=== PATIENT | male | born 1955 | race Caucasian/White ===

== ENCOUNTER 2016-12-26 05:25 | Observation (INO) | payer OTHER ==
[~2016-12-26] VITALS: Ht 167.6 cm; Wt 95.5 kg
[2016-12-26] VITALS (7 sets, daily range): BP systolic 109–181; BP diastolic 69–93; PULSE 66–91; RESP 16–20; TEMP 96–97.9; O2SAT 94–98
[~2016-12-26 05:25] MED LIST: GLIM4TAB PO; RANITAB PO; SAXA1TBM PO; TAMS0.4C4 PO; VASE1025 PO; ZOFR4TAB3 PO
[2016-12-26] MEDS ORDERED: METF1000 PO (05:43)
[2016-12-26] MEDS ORDERED: TAMS5CAP PO (05:43)
[2016-12-26] MEDS ORDERED: ENAL10TA PO (05:43)
[2016-12-26] MEDS ORDERED: GLIM4TAB PO (05:43)
[2016-12-26] MEDS ORDERED: ASPI325T33 PO (05:43)
[2016-12-26] MEDS ORDERED: ZANT150T2 PO (05:43)
--- NOTE | 2016-12-26 05:43 | PD ---
HPI Chief Complaint: Chest Pain Time Seen by Provider: 05:35 Travel History International Travel<30 days: No Contact w/Intl Traveler<30days: No Traveled to known affect area: No History of Present Illness HPI 61-year-old male presents to the emergency department by private transportation for complaint of retrosternal left-sided chest pain since last evening. Patient states that pain was 8/10 in intensity and presently is 5/10 in intensity. Patient is nonradiating. Patient does not report any associated shortness of breath sweats nausea vomiting or referred neck jaw back shoulder arm pain. Also no report of abdominal pain. Patient has history of hypertension dyslipidemia and diabetes. Patient also has family history of CAD with father dying however patient does not note that his father's age that time of . Patient denies tobacco use. Patient did take a 81 mg aspirin prior to arrival to the emergency department. PFSH Past Medical History Narrative Medical Hypertension dyslipidemia diabetes colitis psoriasis; occasional alcohol use; no tobacco use; family history CAD; nursing notes reviewed Autoimmune Disease: No Cancer: No Diabetes: Yes Diminished Hearing: No Genitourinary: No Hypertension: Yes Immune Disorder: No Musculoskeletal: No Neurologic: No Psychiatric: No Reproductive: No Respiratory: No (bronchitis 3 weeks ago) Integumentary: Yes (PSORIASIS) Pneumonia: Yes Past Surgical History Other Surgery: No Social History Alcohol Use: Yes (8 BEERS/WEEK) Tobacco Use: No Substance Use: No Allergies-Medications (Allergen,Severity, Reaction): Coded Allergies: No Known Allergies (Verified , 12/26/16) Reported Meds & Prescriptions Reported Meds & Active Scripts Active Reported Hydrochlorothiazide 25 Mg Tab 25 Mg PO DAILY Aspirin EC (Aspirin) 325 Mg Tabdr 325 Mg PO DAILY Flomax (Tamsulosin HCl) 0.4 Mg Cap 0.4 Mg PO HS Glimepiride 4 Mg Tab 4 Mg PO BIDAC Zantac (Ranitidine HCl) 150 Mg Tab 150 Mg PO BID Enalapril (Enalapril Maleate) 10 Mg Tab 10 Mg PO DAILY Metformin (Metformin HCl) 1,000 Mg Tab 1,000 Mg PO BIDPC With meals Review of Systems Except as stated in HPI: all other systems reviewed are Neg General / Constitutional: No: Fever, Chills HENT: No: Congestion Cardiovascular: Positive: Chest Pain or Discomfort, No: Palpitations, Diaphoresis Respiratory: No: Shortness of Breath Gastrointestinal: No: Nausea, Vomiting Genitourinary: No: Flank Pain Musculoskeletal: No: Myalgias, Arthralgias Skin: No Rash Neurologic: No: Weakness Psychiatric: No: Anxiety Hematologic/Lymphatic: No: Easy Bruising Physical Exam Narrative GENERAL: Well-developed well-nourished male in no acute distress no respiratory distress SKIN: Warm and dry. HEAD: Normocephalic. EYES: No scleral icterus. No injection or drainage. NECK: Supple, trachea midline. No JVD or lymphadenopathy. CARDIOVASCULAR: Regular rate and rhythm without murmurs, gallops, or rubs. Chest wall: Nontender RESPIRATORY: Breath sounds equal bilaterally. No accessory muscle use. GASTROINTESTINAL: Abdomen soft, non-tender, nondistended. MUSCULOSKELETAL: No cyanosis, or edema. Radial and dorsalis pedis pulses 2+ to palpation BACK: Nontender without obvious deformity. No CVA tenderness. Data Data Last Documented VS Vital Signs Date Time Temp Pulse Resp B/P Pulse Ox O2 Delivery O2 Flow Rate FiO2 12/26/16 06:07 91 Nasal Cannula 2 12/26/16 05:38 149/85 151/85 12/26/16 05:31 97.9 91 18 Orders Electrocardiogram (12/26/16 05:35) Basic Metabolic Panel (Bmp) (12/26/16 05:35) Ckmb (Isoenzyme) Profile (12/26/16 05:35) Complete Blood Count With Diff (12/26/16 05:35) Magnesium (Mg) (12/26/16 05:35) Prothrombin Time / Inr (Pt) (12/26/16 05:35) Act Partial Throm Time (Ptt) (12/26/16 05:35) Troponin I (12/26/16 05:35) Chest, Single Ap (12/26/16 05:35) Ecg Monitoring (12/26/16 05:35) Bilateral Bp Monitoring (12/26/16 05:35) Iv Access Insert/Monitor (12/26/16 05:35) Oximetry (12/26/16 05:35) Oxygen Administration (12/26/16 05:35) Aspirin Chew (Aspirin Chew) (12/26/16 05:45) Sodium Chloride 0.9% Flush (Ns Flush) (12/26/16 05:45) Nitroglycerin Sl (Nitrostat Sl) (12/26/16 05:45) Sodium Chlor 0.9% 1000 Ml Inj (Ns 1000 M (12/26/16 05:45) CKMB (12/26/16 05:35) CKMB% (12/26/16 05:35) Sodium Chlorid 0.9% 500 Ml Inj (Ns 500 M (12/26/16 06:30) Labs Laboratory Tests Test 12/26/16 05:35 White Blood Count 8.1 TH/MM3 Red Blood Count 5.43 MIL/MM3 Hemoglobin 14.9 GM/DL Hematocrit 44.9 % Mean Corpuscular Volume 82.8 FL Mean Corpuscular Hemoglobin 27.4 PG Mean Corpuscular Hemoglobin 33.1 % Concent Red Cell Distribution Width 13.6 % Platelet Count 174 TH/MM3 Mean Platelet Volume 10.5 FL Neutrophils (%) (Auto) 60.5 % Lymphocytes (%) (Auto) 22.1 % Monocytes (%) (Auto) 9.2 % Eosinophils (%) (Auto) 3.7 % Basophils (%) (Auto) 4.5 % Neutrophils # (Auto) 4.9 TH/MM3 Lymphocytes # (Auto) 1.8 TH/MM3 Monocytes # (Auto) 0.7 TH/MM3 Eosinophils # (Auto) 0.3 TH/MM3 Basophils # (Auto) 0.4 TH/MM3 CBC Comment DIFF FINAL Differential Comment Prothrombin Time 9.8 SEC Prothromb Time International 0.9 RATIO Ratio Activated Partial 29.9 SEC Thromboplast Time Sodium Level 137 MEQ/L Potassium Level 3.7 MEQ/L Chloride Level 102 MEQ/L Carbon Dioxide Level 28.1 MEQ/L Anion Gap 7 MEQ/L Blood Urea Nitrogen 21 MG/DL Creatinine 0.96 MG/DL Estimat Glomerular Filtration 79 ML/MIN Rate Random Glucose 196 MG/DL Calcium Level 9.5 MG/DL Magnesium Level 1.8 MG/DL Total Creatine Kinase 130 U/L Creatine Kinase MB 1.7 NG/ML Troponin I LESS THAN 0.02 NG/ML MDM Medical Decision Making Medical Screen Exam Complete: Yes Emergency Medical Condition: Yes Medical Record Reviewed: Yes Interpretation(s) EKG normal sinus rhythm rate [address] elevation or injury pattern change or ectopy Differential Diagnosis Chest pain, ACS, myocardial infarction, esophageal spasm, biliary colic, pancreatitis, gastritis, aortic aneurysm, aortic dissection Narrative Course Patient placed on teletypesetter monitor IV access obtained EKG performed which reveals no acute ST elevation or injury pattern; patient administered sublingual nitroglycerin 3 to be taken as needed for pain greater and to be held for pain-free or systolic pressure less than or equal to 100 mmHg Edna De Oliveira MD Dec 26, 2016 05:43
[2016-12-26 05:44] LABS: AUTOMATED NEUTROPHIL # 4.9 TH/MM3 (1.8-7.7); BASOPHIL # 0.4 TH/MM3 (0-0.2); BASOPHIL % 4.5 % (0.0-2.0); EOSINOPHIL # 0.3 TH/MM3 (0-0.4); EOSINOPHIL % 3.7 % (0.0-4.0); HEMATOCRIT 44.9 % (39.0-51.0); HEMO FLAGS DIFF FINAL; LYMPH % 22.1 % (9.0-44.0); LYMPHOCYTE # 1.8 TH/MM3 (1.0-4.8); MEAN CELL VOLUME 82.8 FL (80.0-100.0); MEAN CORPUSCULAR HEMOGLOBIN 27.4 PG (27.0-34.0); MEAN CORPUSCULAR HGB CONC 33.1 % (32.0-36.0); MONO % 9.2 % (0.0-8.0); NEUT % 60.5 % (16.0-70.0); PLATELET COUNT 174 TH/MM3 (150-450); RED BLOOD COUNT 5.43 MIL/MM3 (4.50-5.90); RED CELL DISTRIBUTION WIDTH 13.6 % (11.6-17.2); WHITE BLOOD COUNT 8.1 TH/MM3 (4.0-11.0)
[2016-12-26] MEDS ORDERED: SODIUM CHLOR 0.9% 1000 ML INJ 1,000 ML IV SCH (05:45)
[2016-12-26] MEDS ORDERED: SODIUM CHLORIDE 0.9% FLUSH 10 ML FLUSH IVF PRN ×2 (05:45→06:30)
[2016-12-26] MEDS ORDERED: ASPIRIN 81 MG CHEW TAB PO ONE (05:45)
[2016-12-26] MEDS ORDERED: HYDR25TA5 PO (05:48)
[2016-12-26] MEDS: NITROGLYCERIN 0.4 MG SL 25 TABS/BTL SL SCH ×3 (05:52→06:18)
[2016-12-26 05:53] LABS: CHLORIDE 102 MEQ/L (98-107); POTASSIUM 3.7 MEQ/L (3.5-5.1); SODIUM (NA) 137 MEQ/L (136-145)
[2016-12-26 05:56] LABS: ANION GAP 7 MEQ/L (5-15); BICARBONATE 28.1 MEQ/L (21.0-32.0); BLOOD UREA NITROGEN 21 MG/DL (7-18); MAGNESIUM 1.8 MG/DL (1.5-2.5)
[2016-12-26 05:57] LABS: APTT (PATIENT) 29.9 SEC (24.3-30.1); INTERNATIONAL NORMALIZED RATIO 0.9 RATIO; PROTHROMBIN TIME - PATIENT 9.8 SEC (9.8-11.6)
[2016-12-26 05:59] LABS: GLOMERULAR FILTRATION RATE 79 ML/MIN (>89)
[2016-12-26 06:02] LABS: CREATINE KINASE 130 U/L (39-308)
--- NOTE | 2016-12-26 06:11 | RADRPT ---
EXAM DATE/TIME: 12/26/2016 05:43 [facility] COMPARISON: No previous studies available for comparison. INDICATIONS : Chest pain for 10 hours MEDICAL HISTORY : None. SURGICAL HISTORY : None. ENCOUNTER: Initial ACUITY: 1 day PAIN SCORE: 7/10 LOCATION: Left chest FINDINGS: A single view of the chest demonstrates the lungs to be symmetrically aerated without evidence of mas s, infiltrate or effusion. The cardiomediastinal contours are unremarkable. Osseous structures are intact. CONCLUSION: No acute disease. Boom Gunn MD on December 26, 2016 at 6:09 Board Certified Radiologist. This report was verified electronically.
[2016-12-26 06:14] LABS: CKMB 1.7 NG/ML (0.5-3.6)
[2016-12-26] MEDS ORDERED: SODIUM CHLORIDE 0.9% FLUSH 10 ML FLUSH IV FLUSH PRN (06:30)
[2016-12-26] MEDS ORDERED: SODIUM CHLORID 0.9% 500 ML INJ 500 ML IV ONE (06:30)
--- NOTE | 2016-12-26 08:39 | HHI.HP ---
[facility] Franchesca Glynn MD Admission Diagnosis chest pain Diagnoses: (1) Chest pain Diagnosis: Principal (2) Hypertension Diagnosis: Secondary (3) Diabetes Diagnosis: Secondary (4) Family history of heart disease Diagnosis: Secondary (5) History of tobacco use Diagnosis: Secondary Chief Complaint: Chest pain Travel History International Travel<30 Days: No Contact w/Intl Traveler <30 Da: No Traveled to Known Affected Are: No History of Present Illness Written by Poncho Edge, acting as scribe for Dr. Acuña on 12/26/16 at 08: 32. This note was transcribed by scribe Poncho RESENDEZ. I, Dr. Sandar Acuña personally performed the history, physical exam, and medical decision making; and confirmed the accuracy of the information in the transcribed note. Authenticated by Dr. Sandra Acuña on 12/26/16 at 08:32. 61-year-old male with known history of hypertension, diabetes, history tobacco use, gastroesophageal reflux who presented to hospital because of chest pain. Patient states that the pain started yesterday while he was mowing the grass where he developed a pressure type sensation in his epigastric and midsternal region. At that time the pain did not radiate to neck, back, shoulder, arm, he denied any nausea, vomiting. Did have some mild shortness of breath, he was outside mowing the grass so he was mildly diaphoretic. Throughout the day the patient started developing pain in the left side of his chest which he described as a stabbing type pain and progressively got worse. He could not sleep at night because the pain was so severe. Because he did not improve he came to emergency department for evaluation. Patient did take some aspirin at home prior to coming to the emergency department. He was given nitroglycerin emergency department and his pain did resolve. Patient does have increased risk factors for cardiovascular disease to include hypertension, diabetes, history tobacco use, family history of heart disease. Patient was recommended observation chest pain center. Review of Systems Constitutional: COMPLAINS OF: Diaphoretic episodes, DENIES: Fatigue, Fever, Weight gain, Weight loss, Chills, Dizziness, Change in appetite, Night Sweats Eyes: DENIES: Blurred vision, Diplopia, Eye inflammation, Eye pain, Vision loss , Double Vision Ears, nose, mouth, throat: DENIES: Vertigo, Nasal discharge, Throat pain, Ear Pain, Running Nose, Sinus Pain Respiratory: COMPLAINS OF: Shortness of breath, DENIES: Apneas, Cough, Snoring , Wheezing, Hemoptysis, Sputum production Cardiovascular: COMPLAINS OF: Chest pain, DENIES: Palpitations, Syncope, Dyspnea on Exertion, Lower Extremity Edema, Orthopnea Gastrointestinal: DENIES: Abdominal pain, Black stools, Bloody stools, Constipation, Diarrhea, Nausea, Vomiting, Difficulty Swallowing, Anorexia Neurologic: DENIES: Abnormal gait, Headache, Localized weakness, Paresthesias, Seizures, Speech Problems, Tremor, Poor Balance Past Family Social History Past Medical History Hypertension Diabetes History of skin cancer Past Surgical History Skin cancer removal Reported Medications Reported Meds & Active Scripts Active Reported Hydrochlorothiazide 25 Mg Tab 25 Mg PO DAILY Aspirin EC (Aspirin) 325 Mg Tabdr 325 Mg PO DAILY Flomax (Tamsulosin HCl) 0.4 Mg Cap 0.4 Mg PO HS Glimepiride 4 Mg Tab 4 Mg PO BIDAC Zantac (Ranitidine HCl) 150 Mg Tab 150 Mg PO BID Enalapril (Enalapril Maleate) 10 Mg Tab 10 Mg PO DAILY Metformin (Metformin HCl) 1,000 Mg Tab 1,000 Mg PO BIDPC With meals Allergies: Coded Allergies: No Known Allergies (Verified , 12/26/16) Family History Reviewed is significant for father from myocardial infarction in his 60s. Social History Patient quit smoking in 1984, prior to that he smoked up to 2 pack a cigarettes a day since he was 14 years old. Patient does continue to drink alcohol approximately 4 beers weekly. Denies any illicit drugs Physical Exam Vital Signs Vital Signs Date Time Temp Pulse Resp B/P Pulse Ox O2 Delivery O2 Flow Rate FiO2 12/26/16 08:00 96.0 78 16 129/77 98 12/26/16 08:00 74 18 109/69 98 Nasal Cannula 2 12/26/16 07:05 18 12/26/16 06:58 75 12/26/16 06:30 94 Nasal Cannula 2.00 12/26/16 06:25 75 20 116/79 96 Nasal Cannula 2 12/26/16 06:07 91 Nasal Cannula 2 12/26/16 05:43 Room Air 12/26/16 05:38 149/85 151/85 12/26/16 05:37 95 Room Air 12/26/16 05:37 95 Room Air 12/26/16 05:31 97.9 91 18 181/93 95 Physical Exam GENERAL: Well-developed, well-nourished, in no acute distress. alert and orientated HEENT: Head is normocephalic without any lesions or masses noted. Facial features are symmetric. Eyes: Pupils equal round reactive to light. Extraocular muscles are intact. Conjunctivae were clear. Oropharyngeal: Pharynx without any erythema edema. Tongue is midline without deviation. Buccal mucosa is moist without any masses or lesions NECK: Supple without any masses. Trachea midline no deviation. No JVD, no bruits are appreciated CARDIAC: Regular rhythm, regular rate. S1/S2 are heard. No murmurs gallops or rubs. LUNGS: Clear to auscultation bilaterally. No wheeze, rhonchi or rales. No use of accessory muscles on inspiration or expiration. ABDOMEN: Soft, nontender. Nondistended. Bowel sounds heard in all 4 quadrants. No organomegaly or masses. Negative rebound, negative guarding EXTREMITIES: No edema, pulses are equal bilaterally. No cyanosis or clubbing NEUROLOGY: Mood and affect appear appropriate. Cranial nerves II through XII grossly intact. Muscle strength 5/5 in upper and lower extremities bilaterally. Deep tendon reflexes are 2+ in upper and lower extremities bilaterally. Laboratory Laboratory Tests Test 12/26/16 05:35 White Blood Count 8.1 Red Blood Count 5.43 Hemoglobin 14.9 Hematocrit 44.9 Mean Corpuscular Volume 82.8 Mean Corpuscular Hemoglobin 27.4 Mean Corpuscular Hemoglobin 33.1 Concent Red Cell Distribution Width 13.6 Platelet Count 174 Mean Platelet Volume 10.5 Neutrophils (%) (Auto) 60.5 Lymphocytes (%) (Auto) 22.1 Monocytes (%) (Auto) 9.2 Eosinophils (%) (Auto) 3.7 Basophils (%) (Auto) 4.5 Neutrophils # (Auto) 4.9 Lymphocytes # (Auto) 1.8 Monocytes # (Auto) 0.7 Eosinophils # (Auto) 0.3 Basophils # (Auto) 0.4 CBC Comment DIFF FINAL Differential Comment Prothrombin Time 9.8 Prothromb Time International 0.9 Ratio Activated Partial 29.9 Thromboplast Time Sodium Level 137 Potassium Level 3.7 Chloride Level 102 Carbon Dioxide Level 28.1 Anion Gap 7 Blood Urea Nitrogen 21 Creatinine 0.96 Estimat Glomerular Filtration 79 Rate Random Glucose 196 Calcium Level 9.5 Magnesium Level 1.8 Total Creatine Kinase 130 Creatine Kinase MB 1.7 Troponin I LESS THAN 0.02 Result Diagram: 12/26/1635 12/26/16534 Imaging Last Impressions Chest X-Ray 12/26/16534 Signed Impressions: Service Date/Time: , December 26, 2016 05:43 - CONCLUSION: No acute disease. Boom Gunn MD Assessment and Plan Assessment and Plan 61-year-old male presents with typical chest pain with exertion Chest pain Patient with increased risk factors to include age, hypertension, diabetes, history tobacco use, family history of heart disease We'll continue to rule patient out for acute coronary event with serial cardiac enzymes and serial EKGs We'll pursue exercise stress test rule out any underlying ischemia if patient ruled out for acute coronary event Continue aspirin, nitroglycerin as needed, [place], morphine for pain control Hypertension, blood pressure stable this time Continue home medications Diabetes Hold oral hypoglycemics at this time due to patient nothing by mouth Start Accu-Cheks with sliding scale insulin DVT prevention Low risk, early ambulation Discharge disposition Discharge home in stable condition if stress test is negative Activity: Ad molina. Diet: Healthy heart/diabetic diet Medications per medication reconciliation Follow-up primary medical doctor in one week Problem Qualifiers (1) Chest pain: Qualified Code: R07.9 - Chest pain, unspecified type (2) Hypertension: Qualified Code: I15.9 - Secondary hypertension (3) Diabetes: Qualified Code: E11.8 - Type 2 diabetes mellitus with complication, without long-term current use of insulin Poncho Edge Dec 26, 2016 08:39 Sandra Acuña MD Dec 26, 2016 10:29
[2016-12-26] MEDS ORDERED: ONDANSETRON HCL 4 MG/2 ML VIAL IV PRN (08:45)
[2016-12-26] MEDS ORDERED: DEXTROSE 50% IN WATER 50 ML VIAL(D50) IV PRN (08:45)
[2016-12-26] MEDS ORDERED: GLUCAGON 1 MG/ML VIAL OTHER PRN (08:45)
[2016-12-26] MEDS ORDERED: NITROGLYCERIN 0.4 MG SL 25 TABS/BTL SL PRN (08:45)
[2016-12-26] MEDS ORDERED: ACETAMINOPHEN 500 MG CPLT PO PRN (08:45)
[2016-12-26] MEDS ORDERED: ACETAMINOPHEN/HYDROcodone 325 MG/7.5 MG TAB PO PRN (08:45)
[2016-12-26] MEDS ORDERED: SODIUM CHLORIDE 0.9% FLUSH 10 ML FLUSH IV FLUSH SCH (09:00)
[2016-12-26] MEDS ORDERED: SODIUM CHLORIDE 0.9% FLUSH 10 ML FLUSH SCH (09:00)
[2016-12-26] MEDS ORDERED: MORPHINE SULFATE 8 MG/ML INJ IV PUSH PRN (09:15)
[2016-12-26] MEDS ORDERED: HYDROCHLOROTHIAZIDE 25 MG TAB PO SCH (09:30)
[2016-12-26] MEDS ORDERED: ENALAPRIL MALEATE 10 MG TAB PO SCH (09:30)
[2016-12-26] MEDS ORDERED: FAMOTIDINE 20 MG TAB PO SCH (10:00)
[2016-12-26 10:17] LABS: CREATINE KINASE 105 U/L (39-308)
[2016-12-26 10:29] LABS: CKMB 1.5 NG/ML (0.5-3.6)
[2016-12-26] MEDS ORDERED: INSULIN ASPART SUPPLEMENTAL SCALE SQ SCH (11:00)
[2016-12-26 11:16] LABS: CREATINE KINASE 100 U/L (39-308)
--- NOTE | 2016-12-26 12:46 | HHI.DCPOC ---
Discharge Care Plan Diagnosis: (1) Chest pain Goals to Promote Your Health * To prevent worsening of your condition and complications * To maintain your health at the optimal level Directions to Meet Your Goals Take your medications as prescribed Follow your dietary instruction Follow activity as directed Keep your appointments as scheduled Take your immunizations and boosters as scheduled If your symptoms worsen call your PCP, if no PCP go to Urgent Care Center or Emergency Room Smoking is Dangerous to Your Health. Avoid second hand smoke Call the 24-hour hour crisis hotline for domestic abuse at Poncho Edge Dec 26, 2016 12:46
--- NOTE | 2016-12-26 18:08 | EKG ---
Date Performed: 12/26/2016 Time Performed: 05:31:53 PTAGE: 61 years EKG: Sinus rhythm NORMAL ECG INTERPRETATION BASED ON A DEFAULT AGE OF 40 YEARS PREVIOUS TRACING : 11/06/2013 11.40 Compared to prior tracing no significant change DOCTOR: Susie Garcia Interpretating Date/Time 12/26/2016 18:07:26
--- NOTE | 2016-12-26 18:09 | EKG ---
Date Performed: 12/26/2016 Time Performed: 10:37:50 PTAGE: 61 years EKG: Sinus rhythm NORMAL ECG PREVIOUS TRACING : 12/26/2016 08.39 Compared to prior tracing no significant change DOCTOR: Susie Garcia Interpretating Date/Time 12/26/2016 18:07:51
--- NOTE | 2016-12-26 18:09 | EKG ---
Date Performed: 12/26/2016 Time Performed: 08:39:26 PTAGE: 61 years EKG: Sinus rhythm NORMAL ECG PREVIOUS TRACING : 12/26/2016 05.31 Compared to prior tracing no significant change DOCTOR: Susie Garcia Interpretating Date/Time 12/26/2016 18:07:38
[2016-12-26] MEDS ORDERED: TAMSULOSIN HCL 0.4 MG CAP PO SCH (21:00)
[2016-12-27] MEDS ORDERED: ASPIRIN EC 325 MG TABEC PO SCH (09:00)
[2016-12-27] MEDS ORDERED: LANTUS2P SQ (10:56)
[2016-12-27] MEDS ORDERED: PROT40TA PO (12:46)
[2016-12-27] MEDS ORDERED: CARA1TAB6 PO (12:46)
--- NOTE | 2016-12-27 13:20 | TR ---
Date Performed: 12/26/2016 Time Performed: 11:36:11 DOCTOR: Branden Rojas DRUG LIST: CLINICAL HISTORY: REASON FOR TEST: Chest pain REASON FOR ENDING: Completed Protocol OBSERVATION: Arrhythmia: None Chest Pain: None CONCLUSION: Patient tolerated ANTOINE protocol with Total Exercise Time=6:43 Maximum YW=464 % Max HR Achieved=88.0% Maximum KL=387/78, Testing stopped secondary to goals acheived, Patient reached tar get HR. During Peak exercise patient was asymptomatic, quick upsloping ST segments. HR and BP appropr iate response to exercise. Recovery period, patient was asymptomatic, HR and BP returned to baselineC OMMENTS: Patient exercised using the Antoine protocol. No electrocardiographic changes were seen t o suggest ischemia. Hemodynamic response to exercise was normal. No significant arrhythmia was presen t.
== END 2016-12-26 15:00 | disposition home or self-care (01) ==
LOC: PHED 05:25 → PHEDA 06:27 → PH3A 07:53
PROVIDERS: ADMIT Hospitalist; ATTEND Hospitalist
DX: R07.9 Chest pain, unspecified (principal); I10 Essential (primary) hypertension; E11.9 Type 2 diabetes mellitus without complications; Z82.49 Family history of ischemic heart disease and other diseases of the circulatory system; Z87.891 Personal history of nicotine dependence; K21.9 Gastro-esophageal reflux disease without esophagitis; Z79.84 Long term (current) use of oral hypoglycemic drugs; Z79.899 Other long term (current) drug therapy; Z79.82 Long term (current) use of aspirin; E78.5 Hyperlipidemia, unspecified
CPT/HCPCS: 71010; 80048; 82550; 82552; 82948; 83735; 84484; 85025; 85610; 85730; 93005; 93017; 96360; 99285; G0378; J7030; J7040

== ENCOUNTER 2016-12-27 10:40 | Emergency (ER) | payer OTHER ==
[~2016-12-27] VITALS: Ht 167.6 cm; Wt 94.0 kg
[~2016-12-27 10:40] MED LIST changes: +ASPI325T33 PO; +ENAL10TA PO; +HYDR25TA5 PO; +METF1000 PO; -RANITAB PO; -SAXA1TBM PO; -TAMS0.4C4 PO; +TAMS5CAP PO; -VASE1025 PO; +ZANT150T2 PO; -ZOFR4TAB3 PO
[2016-12-27 10:42] VITALS: BP 136/84; PULSE 98; RESP 16; TEMP 98.3; O2SAT 96
[2016-12-27 10:55] VITALS: O2SAT 94
[2016-12-27] MEDS ORDERED: LANTUS2P SQ (10:56)
[2016-12-27] MEDS ORDERED: ONDANSETRON HCL 4 MG/2 ML VIAL IVP ONE (11:00)
[2016-12-27] MEDS ORDERED: SODIUM CHLORIDE 0.9% FLUSH 10 ML FLUSH IV FLUSH PRN (11:00)
[2016-12-27] MEDS ORDERED: PANTOPRAZOLE SODIUM 40 MG VIAL IVP ONE (11:00)
[2016-12-27] MEDS ORDERED: ALUMINUM/MAGNESIUM/SIMETH 30 ML CUP PO ONE (11:00)
[2016-12-27] MEDS ORDERED: LIDOCAINE VISCOUS 2% SOLN 15 ML UDC PO ONE (11:00)
--- NOTE | 2016-12-27 11:01 | PD ---
HPI Chief Complaint: Abdominal Pain Time Seen by Provider: 10:52 Travel History International Travel<30 days: No Contact w/Intl Traveler<30days: No Traveled to known affect area: No History of Present Illness HPI 61-year-old male here for evaluation of epigastric abdominal pain. The patient was admitted to the chest pain center yesterday and had a negative exercise stress test. At that time he was having left-sided chest pain. He has been having intermittent epigastric abdominal discomfort as well which is more persistent, worse, and constant today. Pain described as a pressure and burning. There are no modifying factors. No history of abdominal surgeries. No nausea or vomiting. He no longer smokes cigarettes. He drinks alcohol occasionally. PFSH Past Medical History Autoimmune Disease: No Cancer: No Diabetes: Yes Patient Takes Glucophage: Yes Diminished Hearing: No GERD: Yes Genitourinary: No Hypertension: Yes Immune Disorder: No Musculoskeletal: No Neurologic: No Psychiatric: No Reproductive: No Respiratory: Yes (Bronchitis) Integumentary: Yes (Psoriasis) Pneumonia: Yes Tetanus Vaccination: < 5 Years Influenza Vaccination: Yes Past Surgical History Other Surgery: Yes (Skin cancer removal left neck) Social History Alcohol Use: Yes (4 pack/every 2 weeks ) Tobacco Use: No Substance Use: No Allergies-Medications (Allergen,Severity, Reaction): Coded Allergies: No Known Allergies (Verified , 12/27/16) Reported Meds & Prescriptions Reported Meds & Active Scripts Active Reported Lantus Inj (Insulin Glargine) 1,000 Unit/10 Ml Vial 30 Units SQ DAILY Hydrochlorothiazide 25 Mg Tab 25 Mg PO DAILY Aspirin EC (Aspirin) 325 Mg Tabdr 325 Mg PO DAILY Flomax (Tamsulosin HCl) 0.4 Mg Cap 0.4 Mg PO HS Glimepiride 4 Mg Tab 4 Mg PO BIDAC Zantac (Ranitidine HCl) 150 Mg Tab 150 Mg PO BID Enalapril (Enalapril Maleate) 10 Mg Tab 10 Mg PO DAILY Metformin (Metformin HCl) 1,000 Mg Tab 1,000 Mg PO BIDPC With meals Review of Systems Except as stated in HPI: all other systems reviewed are Neg Physical Exam Narrative GENERAL: Well-developed, well-nourished, overweight, comfortable, no acute distress. SKIN: Focused skin assessment warm/dry. No rash. HEAD: Atraumatic. Normocephalic. EYES: Pupils equal and round. No scleral icterus. No injection or drainage. ENT: Mucous membranes pink and moist. NECK: Trachea midline. No JVD. CARDIOVASCULAR: Regular rate and rhythm. No murmur appreciated. RESPIRATORY: No accessory muscle use. Clear to auscultation. Breath sounds equal bilaterally. GASTROINTESTINAL: Abdomen soft, nondistended. Mild epigastric tenderness without peritoneal signs. Rest of abdomen is soft and nontender. Negative Em sign. Normal bowel sounds. No hernias. MUSCULOSKELETAL: No obvious deformities. No clubbing. No cyanosis. No edema. NEUROLOGICAL: Awake and alert. No obvious cranial nerve deficits. Motor grossly within normal limits. Normal speech. PSYCHIATRIC: Appropriate mood and affect; insight and judgment normal. Data Data Last Documented VS Vital Signs Date Time Temp Pulse Resp B/P Pulse Ox O2 Delivery O2 Flow Rate FiO2 12/27/16 12:05 81 18 140/83 96 Room Air 12/27/16 10:42 98.3 Orders Complete Blood Count With Diff (12/27/16 10:55) Comprehensive Metabolic Panel (12/27/16 10:55) Lipase (12/27/16 10:55) Prothrombin Time / Inr (Pt) (12/27/16 10:55) Act Partial Throm Time (Ptt) (12/27/16 10:55) Urinalysis - C+S If Indicated (12/27/16 10:55) Ct Abd/Pel W Iv Contrast(Rout) (12/27/16 10:55) Iv Access Insert/Monitor (12/27/16 10:55) Ecg Monitoring (12/27/16 10:55) Oximetry (12/27/16 10:55) Ondansetron Inj (Zofran Inj) (12/27/16 11:00) Pantoprazole Inj (Protonix Inj) (12/27/16 11:00) Sodium Chloride 0.9% Flush (Ns Flush) (12/27/16 11:00) Electrocardiogram (12/27/16 10:55) Al-Mag Hy-Si 40-40-4 Mg/Ml Liq (Mag-Al P (12/27/16 11:00) Lidocaine 2% Viscous (Xylocaine 2% Visco (12/27/16 11:00) Ckmb (Isoenzyme) Profile (12/27/16 10:55) Troponin I (12/27/16 10:55) CKMB (12/27/16 11:10) CKMB% (12/27/16 11:10) Iohexol 350 Inj (Omnipaque 350 Inj) (12/27/16 11:55) Labs Laboratory Tests Test 12/27/16 12/27/16 11:10 11:20 White Blood Count 7.1 TH/MM3 Red Blood Count 5.05 MIL/MM3 Hemoglobin 14.1 GM/DL Hematocrit 41.7 % Mean Corpuscular Volume 82.5 FL Mean Corpuscular Hemoglobin 27.9 PG Mean Corpuscular Hemoglobin 33.8 % Concent Red Cell Distribution Width 13.6 % Platelet Count 162 TH/MM3 Mean Platelet Volume 10.1 FL Neutrophils (%) (Auto) 69.0 % Lymphocytes (%) (Auto) 20.4 % Monocytes (%) (Auto) 8.4 % Eosinophils (%) (Auto) 1.6 % Basophils (%) (Auto) 0.6 % Neutrophils # (Auto) 4.9 TH/MM3 Lymphocytes # (Auto) 1.5 TH/MM3 Monocytes # (Auto) 0.6 TH/MM3 Eosinophils # (Auto) 0.1 TH/MM3 Basophils # (Auto) 0.0 TH/MM3 CBC Comment DIFF FINAL Differential Comment Prothrombin Time 10.0 SEC Prothromb Time International 0.9 RATIO Ratio Activated Partial 28.7 SEC Thromboplast Time Sodium Level 137 MEQ/L Potassium Level 3.8 MEQ/L Chloride Level 100 MEQ/L Carbon Dioxide Level 28.6 MEQ/L Anion Gap 8 MEQ/L Blood Urea Nitrogen 14 MG/DL Creatinine 0.97 MG/DL Estimat Glomerular Filtration 78 ML/MIN Rate Random Glucose 286 MG/DL Calcium Level 8.9 MG/DL Total Bilirubin 0.6 MG/DL Aspartate Amino Transf 26 U/L (AST/SGOT) Alanine Aminotransferase 63 U/L (ALT/SGPT) Alkaline Phosphatase 114 U/L Total Creatine Kinase 116 U/L Creatine Kinase MB 1.3 NG/ML Troponin I LESS THAN 0.02 NG/ML Total Protein 7.4 GM/DL Albumin 3.3 GM/DL Lipase 117 U/L Urine Color YELLOW Urine Turbidity CLEAR Urine pH 6.0 Urine Specific [place] 1.021 Urine Protein NEG mg/dL Urine Glucose (UA) 1000 OR GREATER mg/dL Urine Ketones NEG mg/dL Urine Occult Blood NEG Urine Nitrite NEG Urine Bilirubin NEG Urine Leukocyte Esterase NEG Urine RBC 0-3 /hpf Urine WBC 3-5 /hpf Urine Squamous Epithelial 0-5 /hpf Cells Urine Bacteria OCC /hpf Urine Mucus FEW /lpf Urine Yeast (Budding) RARE Microscopic Urinalysis Comment CULT NOT INDICATED MDM Medical Decision Making Medical Screen Exam Complete: Yes Emergency Medical Condition: Yes Medical Record Reviewed: Yes Differential Diagnosis Gastritis, peptic ulcer disease, pancreatitis, hepatobiliary disease, ACS, Narrative Course Vital signs reviewed. CBC is unremarkable. CMP is remarkable for random glucose 286, otherwise unremarkable. Bicarbonate is 28.6. The patient is not in DKA. Cardiac enzymes are negative. Lipase is 117. UA shows 1000 or greater glucose, rare budding yeast, occasional bacteria, not suggestive of UTI. CT abdomen pelvis: FINDINGS: The lung base is are clear. The there is an ill defined inhomogeneous 3.5 cm defect in the right lobe of the liver that may be artifactual from differential portal flow. This was not present on the previous study. The liver, spleen, pancreas and adrenals are unremarkable. The gallbladder is unremarkable. There is no free fluid or free air. The pelvic contents are unremarkable. Review of bone windows reveals only degenerative changes. CONCLUSION: Abnormal liver as described above. This can be followed up with an MRI when patient clinically stable. I do not see an etiology for patient's abdominal pain.. The patient was given a dose of Diflucan for the yeast in his urine. He was given a dose of Protonix as well as a GI cocktail and is resting comfortably. He was made aware of all findings. With the patient and the patient's daughter were given a copy of the CT abdomen pelvis report. He is stable for discharge home with outpatient follow-up with a primary care physician this week. He was informed on when to return to the emergency department. He verbalizes understanding and agreement with plan. Diagnosis Primary Impression: Epigastric abdominal pain Additional Impressions: Yeast UTI Hyperglycemia Referrals: Primary Care Physician 3 days Additional Instructions: Follow-up with your primary care physician this week. Return to the emergency department for worsening symptoms or any other concerns. Scripts Sucralfate (Carafate)1 Gm Tab1 Gm PO TID #90 TAB Ref 0 On empty stomach Prov:Tommy Chan MD 12/27/16 Pantoprazole (Protonix)40 Mg Tab40 Mg PO DAILY #30 TAB Ref 0 Prov:Tommy Chan MD 12/27/16 Disposition: 01 DISCHARGE HOME Condition: Stable Tommy Chan MD Dec 27, 2016 11:01
[2016-12-27 11:18] LABS: AUTOMATED NEUTROPHIL # 4.9 TH/MM3 (1.8-7.7); BASOPHIL % 0.6 % (0.0-2.0); EOSINOPHIL # 0.1 TH/MM3 (0-0.4); EOSINOPHIL % 1.6 % (0.0-4.0); HEMATOCRIT 41.7 % (39.0-51.0); HEMO FLAGS DIFF FINAL; LYMPH % 20.4 % (9.0-44.0); LYMPHOCYTE # 1.5 TH/MM3 (1.0-4.8); MEAN CELL VOLUME 82.5 FL (80.0-100.0); MEAN CORPUSCULAR HEMOGLOBIN 27.9 PG (27.0-34.0); MEAN CORPUSCULAR HGB CONC 33.8 % (32.0-36.0); MONO % 8.4 % (0.0-8.0); PLATELET COUNT 162 TH/MM3 (150-450); RED BLOOD COUNT 5.05 MIL/MM3 (4.50-5.90); RED CELL DISTRIBUTION WIDTH 13.6 % (11.6-17.2); WHITE BLOOD COUNT 7.1 TH/MM3 (4.0-11.0)
[2016-12-27 11:26] LABS: CHLORIDE 100 MEQ/L (98-107); POTASSIUM 3.8 MEQ/L (3.5-5.1); SODIUM (NA) 137 MEQ/L (136-145)
[2016-12-27 11:28] LABS: BLOOD, URINE NEG (NEG); KETONE, URINE NEG (NEG); NITRITE,URINE NEG (NEG)
[2016-12-27 11:29] LABS: APTT (PATIENT) 28.7 SEC (24.3-30.1); INTERNATIONAL NORMALIZED RATIO 0.9 RATIO
[2016-12-27 11:32] LABS: ANION GAP 8 MEQ/L (5-15); BICARBONATE 28.6 MEQ/L (21.0-32.0); BLOOD UREA NITROGEN 14 MG/DL (7-18)
[2016-12-27 11:35] LABS: ALT (GPT) 63 U/L (12-78); AST (GOT) 26 U/L (15-37); GLOMERULAR FILTRATION RATE 78 ML/MIN (>89)
[2016-12-27 11:37] LABS: TOTAL BILIRUBIN ADULT 0.6 MG/DL (0.2-1.0)
[2016-12-27 11:38] LABS: ALKALINE PHOSPHATASE 114 U/L (45-117); CREATINE KINASE 116 U/L (39-308)
[2016-12-27 11:39] LABS: GLUCOSE,URINE 1000 OR GREATER mg/dL (NEG)
[2016-12-27 11:43] LABS: MUCUS URINE FEW /lpf (OCC); RBC, URINE 0-3 /hpf (0-3); URINE COLOR YELLOW (YELLW/STRAW)
[2016-12-27 11:44] LABS: BACTERIA, URINE OCC /hpf; COMMENT (UR) CULT NOT INDICATED; CULTURE IF INDICATED CULT NOT INDICATED; SQUAMOUS EPITHELIAL CELL URINE 0-5 /hpf (0-5)
[2016-12-27 11:50] LABS: CKMB 1.3 NG/ML (0.5-3.6)
[2016-12-27] MEDS ORDERED: IOHEXOL 350 MG/ML 10 ML VIAL (for RAD DIAG) IV ONE (11:55)
[2016-12-27 12:05] VITALS: BP 140/83; PULSE 81; RESP 18; O2SAT 96
--- NOTE | 2016-12-27 12:19 | RADRPT ---
EXAM DATE/TIME: 12/27/2016 11:34 [facility] COMPARISON: CT ABDOMEN & PELVIS W CONTRAST, April 13, 2011, 11:34. INDICATIONS : Epigastric pain. IV CONTRAST: 85 cc Omnipaque 350 (iohexol) IV ORAL CONTRAST: No oral contrast ingested. RADIATION DOSE: 19.76 CTDIvol (mGy) MEDICAL HISTORY : Diabetes mellitus type 2. Gastroesophageal reflux disease. Hypertension. SURGICAL HISTORY : None. ENCOUNTER: Initial ACUITY: 1 day PAIN SCALE: 5/10 LOCATION: Epigastric TECHNIQUE: Volumetric scanning of the abdomen and pelvis was performed. Using automated exposure control and ad justment of the mA and/or kV according to patient size, radiation dose was kept as low as reasonably achievable to obtain optimal diagnostic quality images. DICOM format image data is available electro nically for review and comparison. FINDINGS: The lung base is are clear. The there is an ill defined inhomogeneous 3.5 cm defect in the right lob e of the liver that may be artifactual from differential portal flow. This was not present on the pr evious study. The liver, spleen, pancreas and adrenals are unremarkable. The gallbladder is unremarkable. There i s no free fluid or free air. The pelvic contents are unremarkable. Review of bone windows reveals only degenerative changes. CONCLUSION: Abnormal liver as described above. This can be followed up with an MRI when patient clinically stabl e. I do not see an etiology for patient's abdominal pain.. Haider Chadwick MD FACR on December 27, 2016 at 12:12 Board Certified Radiologist. This report was verified electronically.
[2016-12-27] MEDS ORDERED: PROT40TA PO (12:46)
[2016-12-27] MEDS ORDERED: CARA1TAB6 PO (12:46)
[2016-12-27] MEDS ORDERED: FLUCONAZOLE 100 MG TAB PO ONE (13:00)
--- NOTE | 2016-12-27 13:50 | EKG ---
Date Performed: 12/27/2016 Time Performed: 11:04:19 PTAGE: 61 years EKG: Sinus rhythm NORMAL ECG Compared to prior tracing no significant change PREVIOUS TRACING : 12/26/2016 10.37 DOCTOR: Branden Rojas Interpretating Date/Time 12/27/2016 13:49:04
== END 2016-12-27 13:15 | disposition home or self-care (01) ==
LOC: PHED 10:40
DX: R10.13 Epigastric pain (principal); B37.49 Other urogenital candidiasis; E11.65 Type 2 diabetes mellitus with hyperglycemia; Z79.4 Long term (current) use of insulin; I10 Essential (primary) hypertension; Z87.891 Personal history of nicotine dependence
CPT/HCPCS: 74177; 80053; 81001; 82550; 82552; 83690; 84484; 85025; 85610; 85730; 93005; 96374; 96375; 99285; C9113; J2405; Q9967